=== PATIENT | female | born 1955 | race Caucasian/White ===

== ENCOUNTER → 2017-08-12 | Outpatient (CLI) | payer OTHER ==
--- NOTE | 2017-08-12 10:49 | US ---
EXAMINATION TYPE: US abdomen complete DATE OF EXAM: 08/12/2017 COMPARISON: NONE CLINICAL HISTORY: Chest pain R07.9,R10.84 Abd Pain. RUQ pain and nausea x 2 weeks EXAM MEASUREMENTS: Liver Length: 14.5 cm Gallbladder Wall: 0.2 cm CBD: 0.5 cm Spleen: 9.9 cm Right Kidney: 10.2 x 4.4 x 4.2 cm Left Kidney: 10.2 x 5.0 x 4.2 cm Pancreas: visualized portions wnl, head and tail obscured by overlying midline bowel gas Liver: wnl Gallbladder: wnl Evidence for sonographic Cain's sign: yes CBD: visualized portions wnl, limited distally at pancreas head by overlying midline bowel gas Spleen: visualized portions wnl, limited by rib shadowing Right Kidney: wnl Left Kidney: 0.4 x 0.4cm echogenic focus inferior pole Upper IVC: wnl Abd Aorta: visualized portions wnl, mid and distal portion partially obscured by overlying midline b owel gas There is no ascites. Cortical medullary differentiation maintained within the kidneys. No hydronephro sis or cortical mass within the kidneys. IMPRESSION: Difficult to exclude nephrolithiasis lower pole left kidney. Slight limitations as descri bed.
--- NOTE | 2017-08-12 12:47 | ECHOS ---
STRESS ECHOCARDIOGRAM INDICATIONS: CP MEDICATIONS:: Steroids BASELINE HEART RATE: 94 BASELINE BLOOD PRESSURE: 143/62 MAXIMUM HEART RATE: 145 MAXIMUM BLOOD PRESSURE: 174/89 85% MPHR: 136 100% MPHR: 160 METS: 10.7 MAXIMUM STAGE REACHED: 4 TOTAL EXERCISE TIME: 9:15 CLINICAL INFORMATION: The patient was exercised for total duration of 9 minutes, peak heart rate of 145 was achieved, maximum blood pressure 174/89 mmHg was noted. The patient did not complain of any chest pain during the test. Resting EKG shows normal sinus rhythm with normal QRS interval and QRS duration and normal ST-T waves. No ST-segment depression suggestive of ischemia is noted. The baseline echocardiographic images reveals normal left ventricular chamber size with normal left ventricular systolic function. In the immediate post exercise, a normal increase in the wall thickness and contractility is noted. FINAL IMPRESSION: 1. This stress echocardiographic study is negative for stress-induced ischemia. 2. Patient's exercise tolerance is normal. 3. EKG portion of the stress test is not suggestive of ischemia. 4. The patient did not complain of any chest pain during the test. MMODL / IJN: [id number] /
== END | disposition home or self-care (01) ==
LOC: RADNMMAIN 09:07
PROVIDERS: ATTEND Family Medicine
DX: R07.9 Chest pain, unspecified (principal); Z88.8 Allergy status to other drugs, medicaments and biological substances
CPT/HCPCS: 76700; 93017; 93350

== ENCOUNTER → 2022-05-29 | Outpatient (CLI) | payer MEDICARE ==
--- NOTE | 2022-05-30 08:17 | MM ---
Reason for Exam: Screening (asymptomatic). Last mammogram was performed 2 year(s) and 9 month(s) ago. Patient History: Menarche at age 17. First Full-Term at age 27. Postmenopausal. Last menstrual period: 09/29/2007 Risk Values: Irene 5 year model risk: 1.7%. NCI Lifetime model risk: 6.3%. Prior Study Comparison: 08/25/2019 Bilateral MG screening mammo w CAD - 2, [facility]. Tissue Density: The breast tissue is heterogeneously dense. This may lower the sensitivity of mammography. Findings: Analyzed By CAD. There is no suspicious group of microcalcifications or new suspicious mass in either breast. No significant change from prior exam. Overall Assessment: Negative, BI-RAD 1 Management: Screening Mammogram of both breasts in 1 year. A clinical breast exam by your physician is recommended on an annual basis and results should be correlated with mammographic findings. Electronically signed and approved by: Humberto Wisdom D.O.
== END | disposition home or self-care (01) ==
LOC: RADMAMWWP 16:09
PROVIDERS: ATTEND Family Medicine
DX: Z12.31 Encounter for screening mammogram for malignant neoplasm of breast (principal); Z78.0 Asymptomatic menopausal state
CPT/HCPCS: 77063; 77067

== ENCOUNTER → 2023-06-16 | Outpatient (CLI) | payer MEDICARE ==
--- NOTE | 2023-06-16 13:49 | MM ---
Reason for Exam: Screening (asymptomatic). Last mammogram was performed 1 year(s) and 1 month(s) ago. Patient History: Menarche at age 17. First Full-Term at age 27. Postmenopausal. Risk Values: Irene 5 year model risk: 1.7%. NCI Lifetime model risk: 6.1%. Prior Study Comparison: 08/25/2019 Bilateral MG screening mammo w CAD - 2, [facility]. 05/29/2022 Bilateral MG 3D screening mammo w/cad, [facility]. Tissue Density: The breast tissue is heterogeneously dense. This may lower the sensitivity of mammography. Findings: Analyzed By CAD. There is no suspicious group of microcalcifications or new suspicious mass. Overall Assessment: Negative, BI-RAD 1 Management: Screening Mammogram of both breasts in [address] [facility] will attempt to contact patient to return for supplemental views and ultrasound if indicated. Patient should continue monthly self-breast exams. A clinical breast exam by your physician is recommended on an annual basis. This exam should not preclude additional follow-up of suspicious palpable abnormalities. Note on Irene scores and lifetime risk: 1. A Irene score greater than 3% is considered moderate risk. If this is the case, consider specialist referral to assess eligibility for a risk reducing agent. 2. If overall lifetime risk for the development of breast cancer is 20% or higher, the patient may qualify for future screening with alternating mammogram and breast MRI. Electronically signed and approved by: Yusuf Payne DO
== END | disposition home or self-care (01) ==
LOC: RADMAMWWP 08:35
PROVIDERS: ATTEND Family Medicine
DX: Z12.31 Encounter for screening mammogram for malignant neoplasm of breast (principal); Z78.0 Asymptomatic menopausal state
CPT/HCPCS: 77063; 77067

== ENCOUNTER → 2023-08-15 | Day surgery (SDC) | payer MEDICARE ==
[2023-08-13 11:29] VITALS: BMI 30.1
[~2023-08-15] MED LIST: LACTATED RINGERS 1,000 ML IV SCH; LIDOCAINE 1% (10MG/ML) FOR IV START INTRADERMA PRN; LIDOCAINE 1% INJ 10MG/ML (20 ML MDV) ONE; PROPOFOL 10 MG/ML 20 ML VIAL IV ONE
[2023-08-15 12:14] VITALS: TEMP 97.3
--- NOTE | 2023-08-15 12:43 | P.PCN ---
Date of Procedure: 08/15/23 Procedure(s) Performed: BRIEF HISTORY: Patient is a 68-year-old pleasant white female scheduled for an elective colonoscopy as a part of screening for colon cancer. PROCEDURE PERFORMED: Colonoscopy. PREOPERATIVE DIAGNOSIS: Screening for colon cancer. IV sedation per Anesthesia. PROCEDURE: After informed consent was obtained, the patient, was brought into the endoscopy unit. IV sedation was administered by Anesthesia under continuous monitoring. Digital rectal examination was normal. Initially the Olympus CF-160 flexible video colonoscope was then inserted in the rectum, gradually advanced into the cecum without any difficulty. Careful examination was performed as the scope was gradually being withdrawn. Ileocecal valve and the appendiceal orifice were visualized and appeared normal. Prep was excellent. Mucosa of the cecum, ascending colon, transverse colon, descending colon, sigmoid colon, and rectum appeared normal. Retroflexion was performed in the rectum and no lesions were seen. The patient tolerated the procedure well. IMPRESSION: Normal-appearing colon from rectum to cecum with no evidence of colorectal neoplasia . RECOMMENDATIONS: Findings of this examination were discussed with the patient as well as a family.. She was advised to have a repeat screening colonoscopy in 10 years.
[2023-08-15 13:10] VITALS: BP 121/81; PULSE 85; RESP 16
== END ==
LOC: ORWHC2ENDO 11:02
PROVIDERS: ATTEND Internal Medicine Gastroenterology
DX: Z12.11 Encounter for screening for malignant neoplasm of colon (principal); J30.2 Other seasonal allergic rhinitis; F17.200 Nicotine dependence, unspecified, uncomplicated; Z79.899 Other long term (current) drug therapy
CPT/HCPCS: J2001; J2704; G0121